=== PATIENT | female | born 1975 | race Caucasian/White ===

== ENCOUNTER → 2022-08-06 | Outpatient (CLI) | payer BC, SELFPAY ==
[2022-08-11 12:26] LABS: HPV APTIMA, High Risk Negative (Negative)
== END | disposition home or self-care (01) ==
PROVIDERS: Visit Provider Registered Nurse
DX: Z12.4 Encounter for screening for malignant neoplasm of cervix (principal)
CPT/HCPCS: 87624; 88175; G0145

== ENCOUNTER → 2022-09-22 | Outpatient (CLI) | payer BC, SELFPAY ==
--- NOTE | 2022-09-22 07:19 | BI_ITS ---
MAMMOGRAPHY - BILATERAL SCREENING REASON FOR EXAM: Female, 46 years old. Routine annual screening examination. PERTINENT HISTORY: Non-contributory. TECHNIQUE: Digital bilateral breast lucia (3D mammographic acquisition) in the CC and MLO projections. 2-D mediolateral oblique (MLO) and craniocaudad (CC) views of both breasts were obtained. CAD: Full Field Digital Mammography with Computer Added Detection was performed. COMPARISON: None. Baseline examination. FINDINGS: Breast Composition: The breasts are heterogeneously dense, which may obscure small masses. There are no dominant masses or suspicious calcifications. No other significant abnormalities are identified. BI/SCRN MAMM (CAD)W/LUCIA BILAT IMPRESSION: Negative screening mammogram. Yearly followup mammogram recommended. (A) ASSESSMENT CATEGORY: BIRADS Category 1: Negative. A letter regarding these results will be sent to the patient by the facility within 30 days. Approximately 10% of breast cancers are not detected by mammography. A normal mammogram should not delay biopsy of a clinically suspicious abnormality. [id number] Electronically Signed: Mitchell Stafford MD at 12:52 EST ,
[2022-09-22 07:58] LABS: Absolute Lymphocyte Count 2.05 X10^3/uL (0.83-4.51); Absolute Neutrophil Count 3.2 X10^3/uL (2.0-7.7); Basophil# 0.04 X10^3/uL; Basophil% 0.7 % (0-1); Eosinophil# 0.32 X10^3/uL; Eosinophils% 5.4 % (0-5); Hemoglobin 14.5 g/dL (12.0-15.0); Lymphocyte # 2.05 X10^3/ul (0.83-4.51); Lymphocyte % 34.5 % (19-41); Mean Corpuscular Hgb 32.4 pg (27.0-32.0); Mean Corpuscular Volume 98.2 fL (81-99); Mean Platelet Vol. 10.3 fl (6.2-12.0); Monocyte# 0.32 X10^3/uL; Monocyte% 5.4 % (0-10); NRBC Flagged by Analyzer 0 % (0-5); Neutrophil % 53.8 % (47-70); Platelet Count 273 K/mm3 (150-450); RBC Distribution Width CV 12.4 % (11.6-14.6); RBC Distribution Width SD 45.1 fl (35.1-43.9); Red Blood Count 4.48 M/mm3 (4.2-5.4); White Blood Count 5.9 K/mm3 (4.4-11.0)
[2022-09-22 08:31] LABS: Hemoglobin A1c 5.2 % (3.8-5.6)
[2022-09-22 08:38] LABS: AST(SGOT) 39 U/L (15-37); Alanine Aminotransfer ALT/SGPT 57 U/L (13-56); Albumin, Serum 3.9 g/dL (3.2-5.0); Alkaline Phosphatase 95 U/L (45-117); Anion Gap 8 (5-15); BUN 14 mg/dL (7-18); Calcium,Total 9.2 mg/dL (8.5-10.1); Chloride 105 mmol/L (98-107); Creatinine, Serum 0.74 mg/dL (0.55-1.02); EST Glomerular Filtration Rate 91 mL/min (>60); Est Glom Filt Rate - Afr Amer 110 mL/min (>60); Follicle Stimulating Hormone 47.5 mIU/mL; Globulin 3.9 g/dL (2.2-4.2); Glucose 98 mg/dL (74-106); Luteinizing Hormone 28.1 mIU/mL; Potassium 3.7 mmol/L (3.5-5.1); Protein, Total 7.8 g/dL (6.4-8.2); Sodium Level 143 mmol/L (136-145); T4 Free Direct 1.11 ng/dL (0.76-1.46); Thyroid Stim Hormone (TSH) 1.71 uIU/mL (0.358-3.74)
== END | disposition home or self-care (01) ==
PROVIDERS: Referring Provider Registered Nurse; Visit Provider Registered Nurse
DX: Z12.31 Encounter for screening mammogram for malignant neoplasm of breast (principal); Z01.419 Encounter for gynecological examination (general) (routine) without abnormal findings; N92.6 Irregular menstruation, unspecified
CPT/HCPCS: 36415; 77063; 77067; 80053; 83001; 83002; 83036; 84439; 84443; 85025

== ENCOUNTER → 2025-01-03 | Outpatient (CLI) | payer BC, SELFPAY ==
[2025-01-03 17:40] LABS: Estradiol 10.9 pg/mL; Follicle Stimulating Hormone 78.5 mIU/mL; Luteinizing Hormone 51.4 mIU/mL
== END | disposition home or self-care (01) ==
PROVIDERS: Referring Provider Nurse Practitioner Family; Visit Provider Nurse Practitioner Family
DX: Z78.0 Asymptomatic menopausal state (principal)
CPT/HCPCS: 36415; 82670; 83001; 83002

== ENCOUNTER → 2025-01-23 | Outpatient (CLI) | payer BC, SELFPAY ==
--- NOTE | 2025-01-23 08:00 | BI_ITS ---
EXAM: SCRN MAMM (CAD)W/LUCIA BILAT DATE: 01/23/2025 CLINICAL HISTORY: F, Age 49 y/o , SCREEN FOR BREAST CANCER BREAST CANCER RISK ASSESSMENT: Has not been calculated. TECHNIQUE: SCRN MAMM (CAD)W/LUCIA BILAT COMPARISON: Prior exam(s) dated 09/22/2022. FINDINGS: TISSUE DENSITY: The breast tissue is heterogeneously dense, which may obscure small masses. Bilateral Breast Mammographic Findings: No suspicious masses, suspicious clustered microcalcifications, architectural distortion or secondary signs of malignancy is identified in either breast. Benign round microcalcifications are seen in the right breast. BI/SCRN MAMM (CAD)W/LUCIA BILAT IMPRESSION: Benign screening mammogram. OVERALL FINAL ASSESSMENT BI-RADS 2: BENIGN RECOMMEND ANNUAL MAMMOGRAPHIC SCREENING. RECOMMENDATION: Routine annual follow-up in 1 Year A letter with findings and recommendations will be mailed to the patient. Reading Location: [id number]
--- OUTSIDE RECORDS SUMMARY | 2025-01-23 08:11 | XMS RPT_ITS | CCD ---
Author Organization [facility] Care Team Providers Care Lpn Medical Assistant Name Role Phone Unavailable Primary Care Provider Unavailabl e Care Physician, No Primary Primary Care Provider Unavailable Care Physician, No Primary Referring Provider Un available SOLEDAD Johnson Attending Provider JERRY SEE Attending Unavailable Unavailable Primary Care Provider Unavailabl e Unavailable Primary Care Provider Unavailabl e PACK, MAYANK Attending Unavailable PACK, MAYANK Attending Unavailable Care Physician, No Primary Primary Care Provider Unavailable Care Physician, No Primary Referring Provider Un available Beatrice MANAGER RENTAL-CEdith Attending Provider Beatrice MANAGER RENTAL-CEdith Referring Provider [phone] Care Physician, No Primary Primary Care Unava ilable Care Physician, No Primary Referring Unava ilable Edith Barron Attending Unavailable Care Physician, No Primary Primary Care Unava ilable Edith Barron Attending Unavailable Edith Barron Referring Unavailable Care Physician, No Primary Primary Care Unava ilable Edith Barron Attending Unavailable Edith Barron Referring Unavailable Allergies Allergy Classification Reported Allergen(s) Allergy Type Date of Onset Reaction(s) Facility (10 sources) Amoxicillin; Translations: [AMOXICILLIN] Drug Allergy 04-17-2015 [facility] (1 source) Amoxicillin Drug Allergy 01-03-2025 [facility] Rep[facility] Medications Current Medications Medication Drug Class(es) Dates Sig (Normalized) Sig (Original) dicyclomine hydrochloride 10 mg oral capsule (4 sources) Anticholinergic Start: 05-22-2015 take 1 capsule by mouth at bedtime dicyclomine (BENTYL) 10 mg capsule Take 1 capsule by mouth before meals and at bedtime. 120 capsule 11 05/22/2015 Active Comment on above: Take 1 capsule by mo uth before meals and at bedtime. Navajo (Nk) (2 sources) Start: 01-03-2025 [place] (Nk) Active January 03, 2025 12:00am Completed/Discontinued Medications Medication Drug Class(es) Dates Sig (Normalized) Sig (Original) polyethylene glycol 3350 66928 mg powder for oral solution (2 sources) Osmotic Laxative Start: 10-09-2023 End: 01-03-2025 Polyethylene Glycol 3350 (Miralax) 17 gram/dose powder Discontinued 17 g PO DAILY October 09, 2023 1:00am January 03, 2025 3:23pm Problems Problem Classification Problem Date Documented Da te Episodic/Chronic Anxiety disorders (2 sources) Anxiety; Translations: [Anxiety disorder, unspecified] 01-04-2025 Chronic Comment on above: MARQUITA 7 score of 10 Menopausal disorders (2 sources) Perimenopausal state; Translations: [Menopausal and female climacteric states] 10-09-2023 Chronic Comment on above: relizen recommendedb asson model viewed for libido. Menstrual disorders (6 sources) Irregular periods; Translations: [Irregular menstruation, unspecified] 08-06-2022 Chronic Comment on above: spontaneous return o f menses past 2 monthswill continue to monitor cycle for the next 3-6 monthsobtain TSH/t4, FSH/LH Other gastrointestinal disorders (4 sources) Irritable bowel syndrome with diarrhea; Translations: [Irritable bowel syndrome with diarrhea] Onset: 5 05-22-2015 Chronic Other gastrointestinal disorders (3 sources) Irritable bowel syndrome; Translations: [Mixed irritable bowel syndrome] 12-01-2023 Chronic Comment on above: currently working [facility] [employer]. recommended looking into magnesium for bowel movements. Other screening for suspected conditions (not mental disorders or infectious disease) (2 sources) Encounter for screening mammogram for malignant neoplasm of breast; Translations: [Encounter for screening mammogram for malignant neoplasm of breast] Onset: 5 Episodic Other upper respiratory infections (1 source) Acute maxillary sinusitis, unspecified; Translations: [Acute non-recurrent maxillary sinusitis] Onset: 3 Episodic Residual codes; unclassified (2 sources) Postmenopausal state; Translations: [Asymptomatic menopausal state] 01-04-2025 Episodic Residual codes; unclassified (1 source) Asymptomatic menopausal state; Translations: [Asymptomatic menopausal state] Onset: Episodic Results Test Name Value Interpretation Reference Range Facility Estradiolon 01-03-2025 ESTRADIOL 10.9 pg/mL Normal [facility] Comment on above: Result Comment: FEMA LES ADULT FEMALE: Premenopausal: 15-350 pg/mL(E2 levels vary widely through the menstrual cycle) Postmenopausal: <10 pg/mL RODGER STAGES MEAN AGE REFERENCE RANGES Stage I(>14 days and prepubertal) 7.1 years Undetectable-20 pg/mLL Stage II 10.5 years Undetectable-24 pg/mL Stage III 11.6 years Undetectable-60 pg/mL Stage IV 12.3 years 15-85 pg/mL Stage V 14.5 years 15-350 pg/mL Puberty onset (transition from Rodger stage I to Rodger stage II) occurs for girls at a median age of 10.5 (/- 2) years. There is evidence that it may occur up to 1 year earlier in obese girls and in girls. Progression through Rodger stages is variable. Rodger stage V (adult) should be reached by age 18. Performed By: #### L 3100.5055, L3300.1750 #### [facility] [address] [place], [place], [id number] FSH and LHon 01-03-2025 FSH 78.5 mIU/mL Normal [facility] Comment on above: Result Comment: FEMA LE: Follicular: 1.4 - 18.1 mIU/mL Midcycle: 3.4 - 33.4 mIU/mL Luteal: 1.5 - 9.1 mIU/mL Post Menopause: 23.0 - 116.3 mIU/mL MALE: 1.4 - 18.1 mIU/mL Performed By: #### L 3100.5055, [id number] #### [facility] [address] [place], [place], [id number] LH 51.4 mIU/mL Normal [facility] Comment on above: Result Comment: FEMA LE: Follicular: 1.9-12.5 mIU/mL Midcycle: 8.7-76.3 mIU/mL Luteal: 0.5-16.9 mIU/mL Post Menopause: 15.9-54.0 mIU/mL MALE: 20-70 Years: 1.5-9.3 mIU/mL >70 Years: 3.1-34.6 mIU/mL Performed By: #### L 3100.5055, [id number] #### [facility] [address] [place], [address] Cdl Service Technician Office Visit Reporton 01-03-2025 Cdl Service Technician Office Visit Report [facility] [address], [address] [place] [address] OFFICE VISIT Date of Service: 01/03/25 MR#: [id number] Acct: [id number] Name: JOSSELIN VOSS Rep #: [id number] : 1975 Provider: ISH Hernandez Age/Sex: 49/F [place] [facility] [place]: Signed Intake Vital Signs 10/09/23 15:59 01/03/25 15:22 01/03/25 15:23 Height 5 ft 5 in 5 ft 5 in 5 ft 5 in Weight: 140 lb 8 oz BMI 23.3 BP 145/85 H Intake 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 Is patient in pain?: No Allergies amoxicillin Allergy (Verified 01/03/25 15:23) Hives Medications ???Medication ???Instructions ???Recorded ???Confirmed ???Type NK 01/03/25 01/03/25 History Is last menstrual period known: No Post menopausal: Yes Patient : No : No Control Method: menopause PFSH Surgical History History of History of colonoscopy History of endometrial ablation Family History Grandmother Ovarian cancer Grandfather Diabetes Mother Lung cancer Social History adopted: No household members: spouse and children number of children: 2 current occupational status: employed current occupation: school bus mechanic pets and animals: Yes sexually active: Yes Smoking Status: Never smoker Electronic Cigarette Use: not used alcohol intake: current alcohol intake frequency: a few times a month additional social history: spouse - Rakan History Past Pregnancies Del. Date Name GA/Weeks Outcome Route Bth Weight Gen Labor Lgth Anesthesia Del Tiffanie Provider FOB 07/22/02 Ty 03/20/06 Ruby HPI Encounter for routine gynecological examination Details: JOSSELIN VOSS is a 49 year old who presents for annual exam. She reports she is doing well overall; she does continue to have hot flashes; feels overall these have naturally improved but does notice irritability; mood changes; increase in her weight. Feels her job stress plays a part however has not had a menses in 2 years and feels post menopausal. Last PAP: 2022; normal. HPV neg. History of abnormal PAP: no. Last mammogram: 2022; normal. History of abnormal mammogram: no Colon cancer screening: Dr. Washington; [facility] Other preventative health care screenings: no PCP. Female Reproductive History Questions: metorrhagia: No, sexually active: Yes, dyspareunia: No and PCB: No Menopausal Symptoms: Yes hot flashes, Yes night sweats, Yes weight change, Yes mood changes and Yes sleep problems Menopausal Treatment: No HRT, No Vaginal Estrogen, No Osphena, No OTC treatments and No prescription non-hormonal treatment ROS Const Constitutional: Reports night sweats; Denies chills, fatigue, fever(s), headache(s) or weight loss Eyes Eyes: Denies change in vision ENT ENT: Denies dizziness Cardio Card: Denies chest pain at rest or palpitations Resp Resp: Denies cough GI GI: Denies abdominal pain, constipation or nausea : Reports hot flashes; Denies difficulty voiding, dysuria, hematuria, nipple discharge, pelvic pain, prolapse symptoms, urinary incontinence, vaginal discharge, vaginal dryness, vaginal odor or vaginal pruritus Skin Skin/Breast: Denies alopecia, rash, breast mass, breast pain, breast skin changes or nipple discharge Neuro Neuro: Denies dizziness Psych Psych: Reports anxiety (see HPI); Denies depression Endo Endo: Denies cold intolerance, excessive sweating or heat intolerance Exam Const General: cooperative, healthy appearing, comfortable, no acute distress, well groomed and well hydrated Nutritional Appearance: well nourished Orientation: alert, awake and oriented x3 HENMT Head: normal to inspection and normocephalic Ears: hearing grossly normal bilaterally and external ears normal Nose: external nose normal Face and sinus: normal facial exam Eyes General: appearance normal, both eyes and all related structures Neck Neck: normal visual inspection, full ROM and no lymphadenopathy Thyroid: thyroid normal Chest Chest palpation inspection: normal inspection of the chest Breast inspection: normal inspection of the breasts and normal inspection of the axillae Breast palpation: normal palpation of the breasts, normal palpation of the axillae and no axillary lymphadenopathy Resp Effort Inspection: normal respiratory effort, able to speak in complete sentences and symmetric chest movement GI Inspection: normal to inspection Palpation: soft and no hepatosplenomegaly General: bladder normal to palpation External Female Exam: normal external appearance and normal appearance of the urethra Urethra: normal brennon (more content not included)... Normal [facility] Serum or plasma estradiol me asurement after follitropin dose (mass/volume)Ordered By: Edith Barron on 01-03-2025 E2 post dose follitropin [Mass/Vol] 10.9 pg/mL [facility] Comment on above: FEMALES ADULT FEMALE : Premenopausal: 15-350 pg/mL(E2 levels vary widely through the menstrual cycle) Postmenopausal: <10 pg/mL RODGER STAGES MEAN AGE REFERENCE RANGES Stage I(>14 days and prepubertal) 7.1 years Undetectable-20 pg/mLL Stage II 10.5 years Undetectable-24 pg/mL Stage III 11.6 years Undetectable-60 pg/mL Stage IV 12.3 years 15-85 pg/mL Stage V 14.5 years 15-350 pg/mL Puberty onset (transition from Rodger stage I to Rodger stage II) occurs for girls at a median age of 10.5 (/- 2) years. There is evidence that it may occur up to 1 year earlier in obese girls and in girls.Progression through Rodger stages is variable. Rogder stage V (adult) should be reached by age 18. HISTORY PHYSICALon HISTORY PHYSICAL HNO ID: [id number] Author: MAYANK BARRIENTOS APRN.MARLYS Service: ? Author Type: Nurse Practitioner Type: H&P Filed: 12/01/2023 07:49 Note Text: DISTANCE HEALTH VISIT This Team Access Model visit is a virtual encounter. It required patient-provider interaction for the medical decision making as documented below. REASON FOR VISIT: follow up IBS HPI: Josselin Voss is a 48 year old female who presents for follow up IBS. She admits her symptoms have improved aprox 60%. She is taking MiraLAX 1 capful every other day. She has a BM every other day. She endorses type 4-5 stool. She feels that her menopause symptoms are exacerbating her IBS. She is working with her window maker on different supplements for menopause. Patient denies heartburn, regurgitation, dysphagia, early satiety, nausea, vomiting, abdominal pain, changes in appetite, change in bowel habits, unintentional weight loss, melena, hematochezia or hematemesis. 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 Voss is a 47 year old female with a history of IBS presents for IBS. She endorses a longstanding history of IBS-M. She was previously seeing Dr. Washington. She was doing well on bentyl and a probiotic for many years. She had a colonoscopy on 05/07/2015 that was unrevealing. She states that she has been under a lot of stress and her symptoms have flared. She endorses constipation accompanied by abdominal bloating and not feeling completely evacuated. She can go up to 4-7 days without a BM. She has done MiraLAX as needed without improvement. I recommend a colon clean out followed by MiraALX 1 capful daily. I discussed titrating this medication as needed to have a bowel movement daily to every other day.I had a long discussion with the patient regarding Irritable Bowel syndrome, including the general benign nature of disease course, the waxing and waning pattern of symptoms, and the correlation of symptoms with stress, depression, or anxiety. The patient was also counseled on the importance of lifestyle modifications to decrease severity of IBS symptoms such as: stress reduction, increased exercise, relaxation techniques, meditation, and yoga among others. 1. Irritable bowel syndrome with constipation - ICD9: 564.1, ICD10: K58.1 - colon clean out - MiraLAX 1 capful daily adjusting s needed COLONOSCOPY 05/07/2015 Impression: - The entire examined colon is normal. Biopsied. PATH FINAL DIAGNOSIS Colon, random biopsies - Colonic mucosa with no significant diagnostic alteration. COMMENT The colonic mucosa shows overall preservation of the crypt architecture with a normal physiologic component of inflammatory cells within the lamina propria including plasma cells. There is no evidence of acute colitis. Lymphocytic or collagenous colitis is not identified. ALLERGIES Allergen Reactions Amoxil [Amoxicillin] Hives PAST MEDICAL HISTORY Diagnosis Date IBS (irritable bowel syndrome) PAST SURGICAL HISTORY Procedure Laterality Date , CLASSIC, IN-HOSP CARE 2001 COLONOSCOPY FLX DX W/COLLJ SPEC WHEN PFRMD 05/07/2015 Colonoscopy PAST SURGICAL HISTORY OF 2009 cervical ablation PAST SURGICAL HISTORY OF 1994 wisdom teeth extraction SCREENING COLONSCOPY NOT HIGH RISK 2010 FAMILY HISTORY Problem Relation Age of Onset Hypertension Maternal Grandmother Heart Maternal Grandfather Stroke Paternal Grandmother Diabetes Paternal Grandfather Social History Tobacco Use Smoking status: Never Smokeless tobacco: Never Vaping Use Vaping Use: Never used Substance Use Topics Alcohol use: No Drug use: No Current Outpatient Medications Medication Sig dicyclomine (BENTYL) 10 mg capsule Take 1 capsule by mouth before meals and at bedtime. (Patient not taking: Reported on 01/26/2023) No current facility-administered medications for this visit. I have confirmed and edited, if necessary, the PFSH obtained by others. REVIEW OF SYSTEMS: GENERAL: No weight loss, malaise or fevers RESPIRATORY: Negative for cough, hemoptysis, wheezing, dyspnea or shortness of breath CARDIOVASCULAR: Negative for chest pain, leg swelling, or palpitations GI: See HPI PHYSICAL EXAM: General - Normal, healthy, cooperative, in no acute distress Able to interact verbally by video conference Psych - ORIENTATION: normal to time place, person and situation Mood/Affect: AFFECT AND MOOD: Normal Head/Neuro - Normal size and shape Facial appearance normal Pulmonary - respiratory effort normal Cardiovascular - patient describes extremities normal, warm, no cyanosis,no clubbing, and no edema Abdominal - Not performed Skin - abnormal lesions not visualized Motor - patient seen sitting with Normal appearing strength and coordination ASSESSMENT/PLAN: Ms. Voss is a 48 year old female with a history of IBS presents for IBS follow up as copied and updated from my previous office vis (more content not included)... Normal [facility] 09-16-2023 SHAHLA Telephone (GASTLN) JOSSELIN VOSS ([id number]) 1975 F Date Time Provider Department 09/16/23 MAYANK BARRIENTOS During your visit today, we recorded the following information about you: Melissa Junior 09/16/2023 1:10 PM Signed Mayank Barrientos APRN.CNP P Ln Rigo Buttonhole Tacker Please schedule follow up in 3 month. Pt requesting virtuals 1st attempt LVM to schedule appointment for vv Melissa Vernon September 16, 2023 Myra Mely 09/29/2023 10:25 AM Signed Called patient with second attempt. LVM to call back and schedule per below and will send my chart message. Allergies As of Date: 09/16/2023 Noted Allergy Reaction AMOXIL (AMOXICILLIN) 04/17/2015 4 - Hives Date Reviewed: 01/26/2023 Reviewed by: Jerry See MD - Fully Assessed Reason for Visit: Appointment [[id number]] Prescriptions as of 09/29/2023 - dicyclomine (BENTYL) 10 mg capsule Take 1 capsule by mouth before meals and at bedtime. Problem List As Of Date 09/16/2023 Noted Resolved Irritable bowel syndrome with diarrhea [K58.0] 05/22/2015 Encounter Status:Closed by MELISSA JUNIOR on 09/16/23 Normal [facility] HISTORY PHYSICALon HISTORY PHYSICAL HNO ID: [id number] Author: MAYANK BARRIENTOS APRN.CNP Service: ? Author Type: Nurse Practitioner Type: H&P Filed: 09/02/2023 08:33 Note Text: DISTANCE HEALTH VISIT This Team Access Model visit is a virtual encounter. It required patient-provider interaction for the medical decision making as documented below. Due to technical difficulties, the visual portion of the virtual visit could not be completed and we proceed with audio only. REASON FOR VISIT: Irritable Bowel Syndrome HPI: Josselin Voss is a 47 year old female who presents for IBS. She endorses a longstanding history of IBS-M. She was previously seeing Dr. Washington. She was doing well on bentyl and a probiotic for many years. She had a colonoscopy on 05/07/2015 that was unrevealing. She states that she has been under a lot of stress and her symptoms have flared. She endorses constipation accompanied by abdominal bloating and not feeling completely evacuated. She can go up to 4-7 days without a BM. She has done MiraLAX as needed without improvement. Patient denies heartburn, regurgitation, dysphagia, early satiety, nausea, vomiting, changes in appetite, unintentional weight loss, melena, hematochezia or hematemesis. No known FHx of GI tract malignancy or disease. No prior abdominopelvic surgeries. Past Clinical Work-Up: ALLERGIES Allergen Reactions Amoxil [Amoxicillin] Hives PAST MEDICAL HISTORY Diagnosis Date IBS (irritable bowel syndrome) PAST SURGICAL HISTORY Procedure Laterality Date , CLASSIC, IN-HOSP CARE 2001 COLONOSCOPY FLX DX W/COLLJ SPEC WHEN PFRMD 05/07/2015 Colonoscopy PAST SURGICAL HISTORY OF 2009 cervical ablation PAST SURGICAL HISTORY OF 1994 wisdom teeth extraction SCREENING COLONSCOPY NOT HIGH RISK 2010 FAMILY HISTORY Problem Relation Age of Onset Hypertension Maternal Grandmother Heart Maternal Grandfather Stroke Paternal Grandmother Diabetes Paternal Grandfather Social History Tobacco Use Smoking status: Never Smokeless tobacco: Never Vaping Use Vaping Use: Never used Substance Use Topics Alcohol use: No Drug use: No Current Outpatient Medications Medication Sig dicyclomine (BENTYL) 10 mg capsule Take 1 capsule by mouth before meals and at bedtime. (Patient not taking: Reported on 01/26/2023) No current facility-administered medications for this visit. I have confirmed and edited, if necessary, the PFSH obtained by others. REVIEW OF SYSTEMS: GENERAL: No weight loss, malaise or fevers RESPIRATORY: Negative for cough, hemoptysis, wheezing, dyspnea or shortness of breath CARDIOVASCULAR: Negative for chest pain, leg swelling, or palpitations GI: See HPI PHYSICAL EXAM: General - Normal, healthy, cooperative, in no acute distress Able to interact verbally by video conference Psych - ORIENTATION: normal to time place, person and situation Mood/Affect: AFFECT AND MOOD: Normal Head/Neuro - Normal size and shape Facial appearance normal Pulmonary - respiratory effort normal Cardiovascular - patient describes extremities normal, warm, no cyanosis,no clubbing, and no edema Abdominal - Not performed Skin - abnormal lesions not visualized Motor - patient seen sitting with Normal appearing strength and coordination ASSESSMENT/PLAN: Ms. Voss is a 47 year old female with a history of IBS presents for IBS. She endorses a longstanding history of IBS-M. She was previously seeing Dr. Washington. She was doing well on bentyl and a probiotic for many years. She had a colonoscopy on 05/07/2015 that was unrevealing. She states that she has been under a lot of stress and her symptoms have flared. She endorses constipation accompanied by abdominal bloating and not feeling completely evacuated. She can go up to 4-7 days without a BM. She has done MiraLAX as needed without improvement. I recommend a colon clean out followed by MiraALX 1 capful daily. I discussed titrating this medication as needed to have a bowel movement daily to every other day.I had a long discussion with the patient regarding Irritable Bowel syndrome, including the general benign nature of disease course, the waxing and waning pattern of symptoms, and the correlation of symptoms with stress, depression, or anxiety. The patient was also counseled on the importance of lifestyle modifications to decrease severity of IBS symptoms such as: stress reduction, increased exercise, relaxation techniques, meditation, and yoga among others. 1. Irritable bowel syndrome with constipation - ICD9: 564.1, ICD10: K58.1 - colon clean out - MiraLAX 1 capful daily adjusting s needed I spent more than 30 minutes [id number] with the patient and over half the time was devoted to counseling and/or coordination of care. This note was dictated using [employer]romboVision speech recognition software and may contain some errors that were a result of the program not accurately transcribing what was dictated. I have commu (more content not included)... [facility] CNOVon 01-26-2023 CNOV Office Visit ([facility] ) JOSSELIN VOSS ([id number]) 1975 F Date Time Provider Department 01/26/23 10:50 AM JERRY SEE During your visit today, we recorded the following information about you: Temperature Pulse Respiration Blood pressure 98.2 degrees 100/minute 19/minute 118/62 Weight 60.3 kg Mishel Gregory LPN 01/26/2023 11:34 AM Signed Attention: During the [employer] system downtime some charting was done on paper. See paper medical record or scanned documents tab for patient documentation. CORY Judd MD 01/26/2023 11:34 AM Signed Josselin Voss is a 47 year old FEMALE who presents with Cough (STARTED 7-10 DAYS AGO /), Sore Throat, Stuffy nose, and Congestion Note: At the time of patient visit the [facility] system of documentation was down Initial documentation was done on the downtime papers Now being transferred to the [facility] system Patient presented with stuffy nose cough congestion sore throat for the last 7 to 10 days Started having some chest discomfort and chest congestion for few days No fever chills, no shortness of breath No vomiting or diarrhea PAST MEDICAL HISTORY Diagnosis Date IBS (irritable bowel syndrome) ACTIVE PROBLEM LIST Irritable Bowel Syndrome With Diarrhea Current Outpatient Medications Medication Sig Dispense Refill dicyclomine (BENTYL) 10 mg capsule Take 1 capsule by mouth before meals and at bedtime. (Patient not taking: Reported on 01/26/2023) 120 capsule 11 No current facility-administered medications for this visit. Social History Tobacco Use Smoking status: Never Smokeless tobacco: Never Vaping Use Vaping Use: Never used Substance Use Topics Alcohol use: No Drug use: No Alcohol Use: No Tobacco Use: Never FAMILY HISTORY Problem Relation Age of Onset Hypertension Maternal Grandmother Heart Maternal Grandfather Stroke Paternal Grandmother Diabetes Paternal Grandfather Review of Systems HENT: Positive for congestion and sinus pain. Respiratory: Positive for cough. All other systems reviewed and are negative. BP 118/62 Pulse 100 Temp (Src) 98.2 (Temporal) Resp 19 Wt 133 lb (60.3kg) SpO2 97% Physical Exam Vitals reviewed. Constitutional: General: She is not in acute distress. Appearance: Normal appearance. She is not ill-appearing or toxic-appearing. HENT: Nose: Congestion present. Comments: Mild paranasal sinuses tenderness Mouth/Throat: Mouth: Mucous membranes are moist. Pharynx: Oropharynx is clear. Comments: Mild postnasal drip Cardiovascular: Rate and Rhythm: Normal rate. Heart sounds: Normal heart sounds. Pulmonary: Effort: Pulmonary effort is normal. Breath sounds: Normal breath sounds. Musculoskeletal: Cervical back: Normal range of motion and neck supple. Neurological: Mental Status: She is alert. ASSESSMENT/PLAN: 1. Acute non-recurrent maxillary sinusitis - ICD9: 461.0, ICD10: J01.00 Paper prescription of Z-Jules as directed 1 pack with no refill was given patient to take to pharmacy Fluids, f/u PCP for evaluation and care Saline nasal spray, [id number] medication for symptom relief as needed Explained details Paper discharge instructions were given to the patient Patient understand and agreed MD Jerry Jean MD 01/26/2023 11:32 AM Signed Fluids, f/u PCP for evaluation and care Saline nasal spray, datl-imr-jozkhra medication for symptom relief as needed Explained details Referring Provider: SELF [200] Allergies As of Date: 01/26/2023 Noted Allergy Reaction AMOXIL (AMOXICILLIN) 04/17/2015 4 - Hives Date Reviewed: 01/26/2023 Reviewed by: Jerry See MD - Fully Assessed Reason for Visit: Cough [28] Cmt: STARTED 7-10 DAYS AGO Sore Throat [200] Stuffy nose [Other] Congestion [Other] Primary Visit Diagnosis:Acute non-recurrent maxillary sinusitis [J01.00] Prescriptions as of 01/26/2023 - dicyclomine (BENTYL) 10 mg capsule Take 1 capsule by mouth before meals and at bedtime. Problem List As Of Date 01/26/2023 Noted Resolved Irritable bowel syndrome with diarrhea [K58.0] 05/22/2015 Other instructions from your clinician: Fluids, f/u PCP for evaluation and care Saline nasal spray, kbee-iwd-[id number] medication for symptom relief as needed Explained details Level of Service: OFFICE/OUTPATIENT ESTABLISHED LOW [facility] 20-29 MIN [06105] Encounter Status:Closed by JERRY SEE on 01/26/23 [facility] Absolute lymphocyte countOrd ered By: Monica Johnson on 09-22-2022 Lymphocytes Auto (Unsp spec) [#/Vol] 2.05 10*3/uL 0.83-4.51 [facility] Basophil percentageOrdered B y: Monica Johnson on 09-22-2022 Basophils/100 WBC (Bld) 0.7 % 0-1 [facility] Bilirubin [Mass/Vol] 0.40 mg/dL 0.20-1.00 [facility] Comment on above: For patients on eltr ombopag therapy, use of Dimension [place] TBIL is not recommended. Chloride [Moles/Vol] 105 mmol/L 98-107 [facility] Eosinophils/100 WBC (Bld) 5.4 % 0-5 [facility] Glucose [Mass/Vol] 98 mg/dL 74-106 [facility] Neutrophils (Bld) [#/Vol] 3.2 10*3/uL 2.0-7.7 [facility] Neutrophils/100 WBC (Bld) 53.8 % 47-70 [facility] Potassium [Moles/Vol] 3.7 mmol/L 3.5-5.1 [facility] Protein [Mass/Vol] 7.8 g/dL 6.4-8.2 [facility] Sodium [Moles/Vol] 143 mmol/L 136-145 [facility] WBC (Bld) [#/Vol] 5.9 10*3/uL 4.4-11.0 [facility] Blood erythrocytes count (nu mber/volume)Ordered By: Monica Johnson on 09-22-2022 RBC (Bld) [#/Vol] 4.48 10*6/uL 4.2-5.4 [facility] Blood hemoglobin measurement (mass/volume)Ordered By: Monica Johnson on 09-22-2022 Hemoglobin (Bld) [Mass/Vol] 14.5 g/dL 12.0-15.0 [facility] Blood lymphocytes/100 leukoc ytesOrdered By: Monica Johnson on 09-22-2022 Lymphocytes/100 WBC (Bld) 34.5 % 19-41 [facility] Blood monocytes/100 leukocyt esOrdered By: Monica Johnson on 09-22-2022 Monocytes/100 WBC (Bld) 5.4 % 0-10 [facility] Blood platelet mean volumeOr dered By: Monica Johnson on 09-22-2022 Platelet mean volume (Bld) [Entitic vol] 10.3 fL 6.2-12.0 [facility] Determination of erythrocyte mean corpuscular volume (MCV)Ordered By: Monica Johnson on 09-22-2022 MCV (RBC) [Entitic vol] 98.2 fL 81-99 [facility] Hematocrit Auto (Bld) [Volum e fraction]Ordered By: Monica Johnson on 09-22-2022 Hematocrit (Bld) [Volume fraction] 44.0 % 37-47 [facility] Laboratory - Chemistry and C hemistry - challengeOrdered By: Monicayo Johnson on 09-22-2022 ALP [Catalytic activity/Vol] 95 U/L 45-117 [facility] ALT [Catalytic activity/Vol] 57 U/L 13-56 [facility] CO2 [Moles/Vol] 30.0 mmol/L 21.0-32.0 [facility] Free T4 [Mass/Vol] 1.11 ng/dL 0.76-1.46 [facility] Globulin (S) [Mass/Vol] 3.9 g/dL 2.2-4.2 [facility] Urea nitrogen/Creatinine [Mass ratio] 19.0 mg/mg 10-20 [facility] - Hematology and Cell countsOrdered By: Monica Johnson on 09-22-2022 Erythrocyte distribution width (RBC) [Entitic vol] 45.1 fL 35.1-43.9 [facility] Erythrocyte distribution width (RBC) [Ratio] 12.4 % 11.6-14.6 [facility] Immature granulocytes/100 WBC (Bld) 0.200 % 0.0-0.9 [facility] Comment on above: IG% - Immature Granu locytes (promyelocytes, myelocytes and metamyelocytes) > 1% indicates that a LEFT SHIFT is Present. MCH (RBC) [Entitic mass] 32.4 pg 27.0-32.0 [facility] Nucleated RBC/100 WBC (Bld) [Ratio] 0 % 0-5 [facility] MCHC Auto (RBC) [Mass/Vol]Or dered By: Monica Johnson on 09-22-2022 MCHC (RBC) [Mass/Vol] 33.0 g/dL 32-36 [facility] No Panel InformationOrdered By: Monica Johnson on 09-22-2022 Estimated GFR (MDRD) Amer 110 mL/min >60 [facility] Comment on above: GFR Calc Estimated GFR (MDRD) Non-Af Amer 91 mL/min >60 [facility] Comment on above: Non- GFR Calc Follicle Stimulating Hormone 47.5 mIU/mL [facility] Comment on above: NORMAL REFERENCE RAN GES FEMALE FOLLICULAR 2.3 - 12.6 mIU/mL MID-CYCLE PEAK 5.2 - 17.5 mIU/mL LUTEAL 1.7 - 12.9 mIU/mL POST-MENOPAUSAL ON MHT 5.9 - 72.8 mIU/mL NOT ON MHT 12.7 - 132.2 mlU/mL MALE 0.7 - 10.8 mIU/mL Luteinizing Hormone 28.1 mIU/mL [facility] Comment on above: NORMAL REFERENCE RAN [facility] FEMALE FOLLICULAR 1.9 - 26.2 mIU/mL MID-CYCLE PEAK 22.8 - 76.1 mIU/mL LUTEAL 0.6 - 16.6 mIU/mL POST-MENOPAUSAL ON MHT 1.1 - 52.4 mIU/mL NOT ON MHT 8.6 - 61.8 mIU/mL MALE 1.2 - 10.6 mIU/mL Thyroid Stimulating Hormone (TSH) 1.71 uIU/mL 0.358-3.74 [facility] Platelets bldOrdered By: Marycarmen Johnson on 09-22-2022 Platelets (Bld) [#/Vol] 273 10*3/uL 150-450 [facility] Serum or plasma albumin neyda urement (mass/volume)Ordered By: Monica Johnson on 09-22-2022 Albumin [Mass/Vol] 3.9 g/dL 3.2-5.0 [facility] Serum or plasma albumin/glob ulin mass ratioOrdered By: Monica Johnson on 09-22-2022 Albumin/Globulin [Mass ratio] 1.0 {ratio} 0.9-2.4 [facility] Serum or plasma calcium neyda urement (mass/volume)Ordered By: Monica Johnson on 09-22-2022 Calcium [Mass/Vol] 9.2 mg/dL 8.5-10.1 [facility] Serum or plasma creatinine m easurement (mass/volume)Ordered By: Monica Johnson on 09-22-2022 Creatinine [Mass/Vol] 0.74 mg/dL 0.55-1.02 [facility] Comment on above: The validity of the calculated GFR & GFRAA in patients over 70 years has not been determined. Clinical correlation is essential. Serum or plasma urea nitroge n measurement (mass/volume)Ordered By: Monica Johnson on 09-22-2022 Urea nitrogen [Mass/Vol] 14 mg/dL 7-18 [facility] Thin prep Papanicolaou smear with manual screeningOrdered By: Monica Johnson on 09-22-2022 Thin prep Papanicolaou smear with manual screening 39 U/L 15 [facility] Thin prep Papanicolaou smear with manual screening 8 5-15 [facility] Whole blood hemoglobin A1c/t otal hemoglobin ratio (mass fraction)Ordered By: Monica Johnson on 09-22-2022 HbA1c (Bld) [Mass fraction] 5.2 % 3.8-5.6 [facility] Comment on above: Normal < 5.7 % Predi abetic 5.7 - 6.4 % Diabetic >or= 6.5 % Please note range changes. Cervical or vagninal specime n microscopic examination by cytology stain (reported asOrdered By: Monica Johnson on 08-06-2022 Cytology report Cyto stain Doc (Cvx/Vag) Comment . [facility] Comment on above: The Pap smear is a s creening test designed to aid in thedetection of premalignant and malignant conditions of theuterine cervix. It is not a diagnostic procedure andshould not be used as the sole means of detecting cervicalcancer. Both false-positive and false-negative reports dooccur. Detection in cervical specim en of any of human papilloma virus (HPV) 16, 18, 31, 33,Ordered By: Monica Johnson on 08-06-2022 HPV 16+18+31+33+35+39+4 5+51+52+56+58+59+66 +68 DNA Probe+sig amp Ql (Cvx) Negative Negative [facility] Comment on above: This nucleic acid am plification test detects fourteen high- risk HPV types (16,18,31,33,35,39,45,51,52,56,58,59,66,68)without differentiation. Laboratory - CytologyOrdered By: Monica Johnson on 08-06-2022 Senior Investigator Cyto stain Nom (Cvx/Vag) [ID] Comment . [facility] Comment on above: Vega Fermin, [employer] hnologist (ASCP) Laboratory - Miscellaneous t estsOrdered By: Monica Johnson on 08-06-2022 Service comment (Unsp spec) [Interp] Comment . [facility] Comment on above: This liquid based Th inPrep(R) pap test was screened withthe use of an image guided system. Service comment (Unsp spec) [Interp] . . [facility] Liquid-based cerv Pap + CT/G C by GODWIN w reflex to high-risk HPV for ASCUSOrdered By: Monica Johnson on 08-06-2022 Cytology report Cyto stain.thin prep Doc (Cvx/Vag) Comment . [facility] Comment on above: Criteria not met, HP V Genotype not performed.Performed at: - [facility] [id number] Director: Brittanie Delaney MD, Phone: [phone] at: = - [facility] [address] [id number] Director: Brittanie Delaney MD, Phone: [phone] No Panel InformationOrdered By: Monica Johnson on 08-06-2022 Pathology report final diagnosis Narrative Comment . [facility] Comment on above: NEGATIVE FOR INTRAEP ITHELIAL LESION OR MALIGNANCY. MSCon 06-29-2021 [facility] REPORT Normal [facility] DATE OF SERVICE: HISTORY OF PRESENT ILLNESS: A 45-year-old female, sinus pressure, nasal congestion, cough. Symptoms started June 22, progressively getting worse. No nausea, vomiting, or diarrhea. ALLERGIES: AMOXICILLIN . PAST MEDICAL HISTORY: Positive for a . Nonsmoker, . FAMILY HISTORY: Unremarkable. SOCIAL HISTORY: Unremarkable. PHYSICAL EXAMINATION: Weight is 121 pounds. Blood pressure 112/72, pulse 90, respirations 16, temperature is 98.6. Pulse oximetry is 97%. This is a 45-year-old female. HEENT: The sinuses are grossly positive. Pharynx is positive for erythema, negative for exudate. Neck is supple with positive anterior, negative posterior cervical lymphadenopathy. Heart has a regular rate and rhythm. Lungs: Harsh bronchial sounds are noted. No areas of consolidation or solid pneumonias could be appreciated. Extremities and neurologic are grossly intact. IMPRESSION: Sinobronchitis. [facility] PATIENT NAME: JOSSELIN VOSS [address] [place] MEDICAL REC #: [id number] [place] [address] [facility] REPORT STATCARE PHYSICIAN PLAN: The patient is placed on Zithromax 500 mg once a day for 5 days and Decadron, as well as Tessalon Perles. Rest, fluids, finish all medicines. Follow in 7-10 days, sooner if complications or problems arise. DO RYAN [id number] SSI File#: [id number] END OF DOCUMENT / CHANGE LOG FOLLOWS Last Edited By [employer]. Signed By Cate Blackman Lisa D DO #VAULI on 06/30/2021 09:20 ET on 06/30/2021 09:20 ET Revision Number - 2 Verified/Reviewed by 06/30/21919 THOR [facility] PATIENT NAME: JOSSELIN VOSS [address] [place] MEDICAL REC #: [id number] [place] [address] [facility] REPORT STATCARE PHYSICIAN Normal [facility] Vital Signs Date Time Vital Sign Value Performing Clinician German maynard 01-03-2025 15:23-0400 Body height 165.1 cm No Primary Care Physician [facility] 01-03-2025 15:22-0400 Body mass index (BMI) [Ratio] 23.3 kg/m2 No Primary Care Physician [facility] 01-03-2025 15:22-0400 Body weight 63.72 kg No Primary Care Physician [facility] 01-03-2025 15:22-0400 Diastolic blood pressure 85 mm[Hg] No Primary Care Physician [facility] 01-03-2025 15:22-0400 Systolic blood pressure 145 mm[Hg] No Primary Care Physician [facility] 08-06-2022 16:38-0500 Body height 165.1 cm No Primary Care Physician [facility] 08-06-2022 16:38-0500 Body mass index (BMI) [Ratio] 20.6 kg/m2 No Primary Care Physician [facility] 08-06-2022 16:38-0500 Diastolic blood pressure 81 mm[Hg] No Primary Care Physician [facility] 08-06-2022 16:38-0500 Systolic blood pressure 132 mm[Hg] No Primary Care Physician [facility] 08-06-2022 15:35-0500 Body weight 56.3 kg No Primary Care Physician [facility] Encounters Encounter Date Encounter Type Care Provider Facility Start: 01-23-2025 ambulatory No Primary Car e Physician Facility:[facility] Start: 01-03-2025 End: 01-03-2025 ambulatory No Primary Care Physician [facility] Work Phone: Start: 01-03-2025 End: 01-03-2025 Patient encounter procedure Edith Barron NP-C -Lab [facility] Start: 01-03-2025 End: 01-03-2025 ambulatory No Primary Care Physician [facility] Work Phone: Start: 01-03-2025 End: 01-03-2025 Patient encounter procedure Edith Barron NP-C -[facility] Work Phone: Start: 01-03-2025 End: 01-03-2025 Patient encounter status Edith Barron NP-C [facility] Start: 01-03-2025 End: 01-03-2025 ambulatory No Primary Care Physician Facility:[facility] Start: 12-01-2023 End: 12-01-2023 ambulatory Mayank Pack CASH APPLICATIONS ASSOCIATE.LOGGING CREW FOREMAN Work Phone: Gastroenterology Comment on above: Irritable bowel synd chad with both constipation and diarrhea [K58.2] (Primary Dx) Start: 12-01-2023 End: 12-01-2023 Telemedicine consultation with patient Mayank Pack CASH APPLICATIONS ASSOCIATE.LOGGING CREW FOREMAN Work Phone: Gastroenterology Start: 09-16-2023 Telephone encounter Mayank Pac k CASH APPLICATIONS ASSOCIATE.LOGGING CREW FOREMAN Work Phone: Gastroenterology Comment on above: Appointment Start: 09-02-2023 End: 09-02-2023 ambulatory MAYANK PACK Facility:[facility] Start: 01-26-2023 Patient encounter procedure [facility] Provider [facility] Department Start: 01-26-2023 End: 01-26-2023 ambulatory PRATHEEP PAWA Facility:[id number] Start: 09-22-2022 End: 09-22-2022 ambulatory No Primary Care Physician [facility] Work Phone: Start: 09-22-2022 End: 09-22-2022 Patient encounter procedure No Primary Care Physician [facility]-Outpatient Breast Imaging Start: 08-06-2022 End: 08-06-2022 ambulatory No Primary Care Physician [facility] Work Phone: Start: 08-06-2022 End: 08-06-2022 Patient encounter procedure No Primary Care Physician [facility]-Laboratory, Specimen Start: 08-06-2022 End: 08-06-2022 Patient encounter procedure No Primary Care Physician [facility] Start: 06-29-2021 End: 06-29-2021 Subsequent hospital visit by physician Cate Blackman Work Phone: [facility] Comment on above: SINUS PRESSURE,NASAL CONGESTION,COUGH Procedures Date Procedure Procedure Detail Performing Clinician Start: 01-03-2025 Follicle stimulating hormone measurement No Primary Care Physician Comment on above: FEMALE:Follicular: 1 .4 - 18.1 mIU/mLMidcycle: 3.4 - 33.4 mIU/mLLuteal: 1.5 - 9.1 mIU/mLPost Menopause: 23.0 - 116.3 mIU/mLMALE: 1.4 - 18.1 mIU/mL Start: 01-03-2025 Luteinizing hormone measurement No Primary Care Physician Comment on above: FEMALE:Follicular: 1 .9-12.5 mIU/mLMidcycle: 8.7-76.3 mIU/mLLuteal: 0.5-16.9 mIU/mLPost Menopause: 15.9-54.0 mIU/mLMALE:20-70 Years: 1.5-9.3 mIU/mL>70 Years: 3.1-34.6 mIU/mL Start: 09-22-2022 Screening mammography N o Primary Care Physician Start: 05-07-2015 Colonoscopy [facility]cf Provid er Plan of Treatment Date Care Activity Detail Author Start: 01-23-2025 MG Breast - bilateral Screening [facility] Start: 01-03-2025 Estradiol (E2) [Mass/volume] in Serum or Plasma [facility] Start: 01-03-2025 Follitropin and Lutropin panel [Units/volume] - Serum or Plasma [facility] Start: 04-03-2024 Influenza vaccination Influenza Vaccine (Season Ended) [facility] Start: 08-03-2023 Behavioral Health Screening Behavioral Health Screening [facility] Start: 08-03-2023 Depression Assessment Depression Assessment [facility] Start: 04-03-2023 Covid-19 Vaccine ( season) Covid-19 Vaccine ( season) [facility] Start: 04-03-2023 Influenza vaccination [facility] Start: 2022 COLOGUARD (FIT-DNA) COLOGUARD (FIT-DNA) [facility] Start: 2022 Colonoscopy COLONOSCOPY [facility] Start: 2022 COLORECTAL CANCER SCREENING COLORECTAL CANCER SCREENING [facility] Start: [address] COLONOGRAPHY [facility] Start: 2022 DIABETES SCREEN DIABETES SCREEN [facility] Start: 2022 Diabetes Screening Diabetes Screening [facility] Start: 2022 FECAL OCCULT BLOOD FECAL OCCULT BLOOD [facility] Start: 2022 Lipid panel Lipid Screening [facility] Start: 2022 LIPID SCREEN LIPID SCREEN [facility] Start: 2022 Screening for malignant neoplasm of colon [facility] Start: 2022 SIGMOIDOSCOPY SIGMOIDOSCOPY [facility] Start: 08-03-2022 DEPRESSION ASSESSMENT DEPRESSION ASSESSMENT [facility] Start: 11-15-2021 COVID-19 VACCINE (4 - Booster for Moderna series) COVID-19 VACCINE (4 - Booster for Moderna series) [facility] Start: 04-03-2021 Influenza vaccination INFLUENZA (#1) [facility] Start: 2017 Mammography MAMMOGRAM [facility] Start: 2017 Screening for malignant neoplasm of breast Mammogram Screening [facility] Start: 10-24-2007 HPV TESTING HPV TESTING [facility] Start: 10-24-2007 Screening for malignant neoplasm of cervix HPV Testing [facility] Start: 1998 PAP TESTING PAP TESTING [facility] Start: 1998 Screening for malignant neoplasm of cervix Pap Testing [facility] Start: 1996 Hepatitis B Vaccine (1 of 3 - 19+ 3-dose series) Hepatitis B Vaccine (1 of 3 - 19+ 3-dose series) [facility] Start: 1996 Urine microalbumin profile [facility] Start: 10-24-1995 HEPATITIS C SCREENING HEPATITIS C SCREENING [facility] Start: 10-24-1995 Hepatitis C screening Hepatitis C Screening [facility] Start: 10-24-1995 HIV SCREENING HIV SCREENING [facility] Start: 10-24-1995 HIV screening HIV Screening [facility] Start: 1989 Adult depression screening assessment DEPRESSION SCREENING [facility] Start: 1982 COVID-19 VACCINE (1) COVID-19 VACCINE (1) [facility] Start: 1977 HEPATITIS B (1 of 3 - 3-dose series) HEPATITIS B (1 of 3 - 3-dose series) [facility] Start: 1977 Hepatitis B Vaccine (1 of 3 - 3-dose series) Hepatitis B Vaccine (1 of 3 - 3-dose series) [facility] CBC W Auto Different ial panel - Blood [facility] Follicle stimulating hormone measurement [facility] Follitropin and Lutr opin panel [Units/volume] - Serum or Plasma [facility] Hemoglobin A1c/Hemoglobin.total in Blood [facility] Lutropin [Units/volu me] in Serum or Plasma [facility] MG Breast - bilatera l Screening [facility] MG Breast - bilatera l Screening [facility] T4 free measurement [facility] Thyroid stimulating hormone measurement [facility] Payers Date Payer Category Payer Self-pay 2023 Unknown [id number] 2023 Unknown [employer] PPO [id number] 2023-Present [phone] [address] [place] [address] PPO [id number] 2015 Private Health Insurance [facility] CHOICE PLUS [id number] 2015-Present [phone] [address] [place] [address] HMO [id number] Unknown [id number] Unknown [id number] Unknown [id number] Social History Date Type Detail Facility Start: 01-26-2023 End: 10-09-2023 Tobacco smoking status NHIS Never smoked tobacco [facility] Start: 06-07-2015 End: 01-26-2023 Alcohol intake Current non-drinker of alcohol (finding) [facility] Start: 1975 Sex Assigned At Not on file [facility] Start: 08-06-2022 Tobacco smoking stat us NHIS Unknown if ever smoked [facility] Start: 1975 Sex Assigned At Female [facility] Start: 01-26-2023 Tobacco use and exposure Smokeless tobacco non-user [facility] Start: 01-26-2023 End: 09-02-2023 History of Social function [facility] Start: 01-26-2023 End: 09-02-2023 Tobacco use panel [facility] National Score (1-100), lower number is lower risk 54 [facility] Clinical Notes 08-06-2022 to 01-03-2025 Note Date & Type Note Facility 01-03-2025 Evaluation note Diagnosis Onset Date Resolution Anxiety acute January 03, 2025 3:01pm Post-menopausal acute January 03, 2025 3:01pm Encounter for routine gynecological examination noneactive January 03, 2025 3:01pm [facility] Work Phone: [phone] 600-917404-30-2024 Instructions* Patient Instructions* Mayank Barrientos APRN.LOGGING CREW FOREMAN - 12/01/2023 7:16 AM EDT Thank you for seeing me in clinic today. As we discussed, my recommendations are as follows: Begin using 2 teaspoons of soluble fiber (e.g. Metamucil or Citrucel) in 12 oz of water every day. Stir until fiber has dissolved. If fiber is well-tolerated but does not completely regulate bowel movements after 1 week, add another teaspoon of fiber for a total of 3 teaspoons per day. Fiber works best if you are hydrated. Be sure to drink at least 64 oz of water every day. Continue MiraLAX 1 capful daily Increase water intake If you have any questions about the above treatment plan, please do not hesitate to call the officeor send me a [facility] message. [facility] History and physical note * Mayank Barrientos APRN.CNP - 12/01/2023 7:00 AM EDT DISTANCE HEALTH VISIT This Team Access Model visit is a virtual encounter. It required patient- provider interaction for the medical decision making as documented below. REASON FOR VISIT: follow up IBS HPI: Josselin Voss is a 48 year old female who presents for follow up IBS. She admits her symptoms have improved aprox 60%. She is taking MiraLAX 1 capful every other day. She has a BM every other day. She endorses type 4-5 stool. She feels that her menopause symptoms are exacerbating her IBS. She is working with her window maker on different supplements for menopause. Patient denies heartburn, regurgitation, dysphagia, early satiety, nausea, vomiting, abdominal pain, changes in appetite, change in bowel habits, unintentional weight loss, melena, hematochezia or hematemesis. Past Clinical Work-Up: [facility] MAYANK BARRIENTOS APRN. CNP 09/02/2023 ASSESSMENT/PLAN: Ms. Voss is a 47 year old female with a history of IBS presents for IBS. She endorses a longstanding history of IBS-M. She was previously seeing Dr. Washington. She was doing well on bentyl and a probiotic for many years. She had a colonoscopy on 05/07/2015 that was unrevealing. She states that she has been under a lot of stress and her symptoms have flared. She endorses constipation accompanied by abdominal bloating and not feeling completely evacuated. She can go up to 4-7 days without a BM. Shehas done MiraLAX as needed without improvement. I recommend a colon clean out followed by MiraALX 1capful daily. I discussed titrating this medication as needed to have a bowel movement daily to every other day.I had a long discussion with the patient regarding Irritable Bowel syndrome, including the general benign nature of disease course, the waxing and waning pattern of symptoms, and the correlation of symptoms with stress, depression, or anxiety. The patient was also counseled on the importance of lifestyle modifications to decrease severity of IBS symptoms such as: stress reduction, increased exercise, relaxation techniques, meditation, and yoga among others. 1. Irritable bowel syndrome with constipation - ICD9: 564.1, ICD10: K58.1 - colon clean out - MiraLAX 1 capful daily adjusting s needed COLONOSCOPY 05/07/2015 Impression: - The entire examined colon is normal. Biopsied. PATH FINAL DIAGNOSIS Colon, random biopsies - Colonic mucosa with no significant diagnostic alteration. COMMENT The colonic mucosa shows overall preservation of the crypt architecture with a normal physiologic component of inflammatory cells within the lamina propria including plasma cells. There is no evidence of acute colitis. Lymphocytic or collagenous colitis is not identified. ALLERGIES Allergen Reactions Amoxil [Amoxicillin] Hives PAST MEDICAL HISTORY Diagnosis Date IBS (irritable bowel syndrome) PAST SURGICAL HISTORY Procedure Laterality Date , CLASSIC, IN-HOSP CARE 2001 COLONOSCOPY FLX DX W/COLLJ SPEC WHEN PFRMD 05/07/2015 Colonoscopy PAST SURGICAL HISTORY OF 2009 cervical ablation PAST SURGICAL HISTORY OF 1994 wisdom teeth extraction SCREENING COLONSCOPY NOT HIGH RISK 2010 FAMILY HISTORY Problem Relation Age of Onset Hypertension Maternal Grandmother Heart Maternal Grandfather Stroke Paternal Grandmother Diabetes Paternal Grandfather Social History Tobacco Use Smoking status: Never Smokeless tobacco: Never Vaping Use Vaping Use: Never used Substance Use Topics Alcohol use: No Drug use: No Current Outpatient Medications Medication Sig dicyclomine (BENTYL) 10 mg capsule Take 1 capsule by mouth before meals and at bedtime. (Patient not taking: Reported on 01/26/2023) No current facility-administered medications for this visit. I have confirmed and edited, if necessary, the PFSH obtained by others. REVIEW OF SYSTEMS: GENERAL: No weight loss, malaise or fevers RESPIRATORY: Negative for cough, hemoptysis, wheezing, dyspnea or shortness of breath CARDIOVASCULAR: Negative for chest pain, leg swelling, or palpitations GI: See HPI PHYSICAL EXAM: General - Normal, healthy, cooperative, in no acute distress Able to interact verbally by video conference Psych - ORIENTATION: normal to time place, person and situation Mood/Affect: AFFECT AND MOOD: Normal Head/Neuro - Normal size and shape Facial appearance normal Pulmonary - respiratory effort normal Cardiovascular - patient describes extremities normal, warm, no cyanosis,no clubbing, and no edema Abdominal - Not performed Skin - abnormal lesions not visualized Motor - patient seen sitting with Normal appearing strength and coordination ASSESSMENT/PLAN: Ms. Voss is a 48 year old female with a history of IBS presents for IBS follow up as copied and updated from my previous office visit note and reflects medical decision making today. She admits hersymptoms have improved aprox 60%. She is taking MiraLAX 1 capful every other day. She has a BM every other day. She endorses type 4-5 stool. She feels that her menopause symptoms are exacerbating herIBS. I recommend continuing MiraLAX. I discussed adding metamucil daily. She denies red flag symptoms. The patient is agreeable with the above plan and encouraged to reach out with questions and concerns. ASSESSMENT/PLAN: 1. Irritable bowel syndrome with both constipation and diarrhea [K58.2] - ICD9: 564.1, ICD10: K58.2 Continue MiraLAX 1 capful daily Increase water intake 3. Metamucil daily 4. Follow up in 3 months I spent more than 30 minutes [id number] with the patient and over half the time was devoted to counseling and/or coordination of care. This note was dictated using ThromboVision speech recognition software and may contain some errors that were a result of the program not accurately transcribing what was dictated. I have communicated my name and active licensure. The patient's identity and physical location wereverified at the time of this visit. Either the patient or their legal medical representative has been informed of the risks and benefits of -- and alternatives to -- treatment through a remote evaluation andconsents to proceed with the evaluation remotely. Mayank Barrientos APRN.CNP [facility]04-30-2024 History and physical note* Mayank Barrientos APRN.CNP - 12/01/2023 7:00 AM EDT DISTANCE HEALTH VISIT This Team Access Model visit is a virtual encounter. It required patient- provider interaction for the medical decision making as documented below. REASON FOR VISIT: follow up IBS HPI: Josselin Voss is a 48 year old female who presents for follow up IBS. She admits her symptoms have improved aprox 60%. She is taking MiraLAX 1 capful every other day. She has a BM every other day. She endorses type 4-5 stool. She feels that her menopause symptoms are exacerbating her IBS. She is working with her window maker on different supplements for menopause. Patient denies heartburn, regurgitation, dysphagia, early satiety, nausea, vomiting, abdominal pain, changes in appetite, change in bowel habits, unintentional weight loss, melena, hematochezia or hematemesis. Past Clinical Work-Up: [employer] 09/02/2023 ASSESSMENT/PLAN: Ms. Voss is a 47 year old female with a history of IBS presents for IBS. She endorses a longstanding history of IBS-M. She was previously seeing Dr. Washington. She was doing well on bentyl and a probiotic for many years. She had a colonoscopy on 05/07/2015 that was unrevealing. She states that she has been under a lot of stress and her symptoms have flared. She endorses constipation accompanied by abdominal bloating and not feeling completely evacuated. She can go up to 4-7 days without a BM. Shehas done MiraLAX as needed without improvement. I recommend a colon clean out followed by MiraALX 1capful daily. I discussed titrating this medication as needed to have a bowel movement daily to every other day.I had a long discussion with the patient regarding Irritable Bowel syndrome, including the general benign nature of disease course, the waxing and waning pattern of symptoms, and the correlation of symptoms with stress, depression, or anxiety. The patient was also counseled on the importance of lifestyle modifications to decrease severity of IBS symptoms such as: stress reduction, increased exercise, relaxation techniques, meditation, and yoga among others. 1. Irritable bowel syndrome with constipation - ICD9: 564.1, ICD10: K58.1 - colon clean out - MiraLAX 1 capful daily adjusting s needed COLONOSCOPY 05/07/2015 Impression: - The entire examined colon is normal. Biopsied. PATH FINAL DIAGNOSIS Colon, random biopsies - Colonic mucosa with no significant diagnostic alteration. COMMENT The colonic mucosa shows overall preservation of the crypt architecture with a normal physiologic component of inflammatory cells within the lamina propria including plasma cells. There is no evidence of acute colitis. Lymphocytic or collagenous colitis is not identified. ALLERGIES Allergen Reactions Amoxil [Amoxicillin] Hives PAST MEDICAL HISTORY Diagnosis Date IBS (irritable bowel syndrome) PAST SURGICAL HISTORY Procedure Laterality Date , CLASSIC, IN-HOSP CARE 2001 COLONOSCOPY FLX DX W/COLLJ SPEC WHEN PFRMD 05/07/2015 Colonoscopy PAST SURGICAL HISTORY OF 2009 cervical ablation PAST SURGICAL HISTORY OF 1994 wisdom teeth extraction SCREENING COLONSCOPY NOT HIGH RISK 2010 FAMILY HISTORY Problem Relation Age of Onset Hypertension Maternal Grandmother Heart Maternal Grandfather Stroke Paternal Grandmother Diabetes Paternal Grandfather Social History Tobacco Use Smoking status: Never Smokeless tobacco: Never Vaping Use Vaping Use: Never used Substance Use Topics Alcohol use: No Drug use: No Current Outpatient Medications Medication Sig dicyclomine (BENTYL) 10 mg capsule Take 1 capsule by mouth before meals and at bedtime. (Patient not taking: Reported on 01/26/2023) No current facility-administered medications for this visit. I have confirmed and edited, if necessary, the PFSH obtained by others. REVIEW OF SYSTEMS: GENERAL: No weight loss, malaise or fevers RESPIRATORY: Negative for cough, hemoptysis, wheezing, dyspnea or shortness of breath CARDIOVASCULAR: Negative for chest pain, leg swelling, or palpitations GI: See HPI PHYSICAL EXAM: General - Normal, healthy, cooperative, in no acute distress Able to interact verbally by video conference Psych - ORIENTATION: normal to time place, person and situation Mood/Affect: AFFECT AND MOOD: Normal Head/Neuro - Normal size and shape Facial appearance normal Pulmonary - respiratory effort normal Cardiovascular - patient describes extremities normal, warm, no cyanosis,no clubbing, and no edema Abdominal - Not performed Skin - abnormal lesions not visualized Motor - patient seen sitting with Normal appearing strength and coordination ASSESSMENT/PLAN: Ms. Voss is a 48 year old female with a history of IBS presents for IBS follow up as copied and updated from my previous office visit note and reflects medical decision making today. She admits hersymptoms have improved aprox 60%. She is taking MiraLAX 1 capful every other day. She has a BM every other day. She endorses type 4-5 stool. She feels that her menopause symptoms are exacerbating herIBS. I recommend continuing MiraLAX. I discussed adding metamucil daily. She denies red flag symptoms. The patient is agreeable with the above plan and encouraged to reach out with questions and concerns. ASSESSMENT/PLAN: 1. Irritable bowel syndrome with both constipation and diarrhea [K58.2] - ICD9: 564.1, ICD10: K58.2 Continue MiraLAX 1 capful daily Increase water intake 3. Metamucil daily 4. Follow up in 3 months I spent more than 30 minutes [id number] with the patient and over half the time was devoted to counseling and/or coordination of care. This note was dictated using ThromboVision speech recognition software and may contain some errors that were a result of the program not accurately transcribing what was dictated. I have communicated my name and active licensure. The patient's identity and physical location wereverified at the time of this visit. Either the patient or their legal medical representative has been informed of the risks and benefits of -- and alternatives to -- treatment through a remote evaluation andconsents to proceed with the evaluation remotely. Mayank Barrientos APRN.CNP [facility] Miscellaneous Notes* Telephone Encounter - Melissa Junior - 09/16/2023 12:58 PM EST Images from the original note were not included. Mayank Barrientos APRN.CNP [address] [employer] Please schedule follow up in 3 month. Pt requesting virtuals 1st attempt LVM to schedule appointment for vv Melissa Junior September 16, 2023 documented in this encounterMer[facility]06[facility]23 NoteHNO ID: [id number] Author: Jerry See MD Service: ? Author Type: Physician Type: Progress Notes Filed: 01/26/2023 11:34 AM Note Text: Josselin Voss is a 47 year old FEMALE who presents with Cough (STARTED 7-10 DAYS AGO /), Sore Throat, Stuffy nose, and Congestion Note: At the time of patient visit the [facility] system of documentation was down Initial documentation was done on the downtime papers Now being transferred to the [facility] system Patient presented with stuffy nose cough congestion sore throat for the last 7 to 10 days Started having some chest discomfort and chest congestion for few days No fever chills, no shortness of breath No vomiting or diarrhea PAST MEDICAL HISTORY Diagnosis Date IBS (irritable bowel syndrome) ACTIVE PROBLEM LIST Irritable Bowel Syndrome With Diarrhea Current Outpatient Medications Medication Sig Dispense Refill dicyclomine (BENTYL) 10 mg capsule Take 1 capsule by mouth before meals and at bedtime. (Patient not taking: Reported on 01/26/2023) 120 capsule 11 No current facility-administered medications for this visit. Social History Tobacco Use Smoking status: Never Smokeless tobacco: Never Vaping Use Vaping Use: Never used Substance Use Topics Alcohol use: No Drug use: No Alcohol Use: No Tobacco Use: Never FAMILY HISTORY Problem Relation Age of Onset Hypertension Maternal Grandmother Heart Maternal Grandfather Stroke Paternal Grandmother Diabetes Paternal Grandfather Review of Systems HENT: Positive for congestion and sinus pain. Respiratory: Positive for cough. All other systems reviewed and are negative. BP 118/62 Pulse 100 Temp (Src) 98.2 (Temporal) Resp 19 Wt 133 lb (60.3kg) SpO2 97% Physical Exam Vitals reviewed. Constitutional: General: She is not in acute distress. Appearance: Normal appearance. She is not ill-appearing or toxic-appearing. HENT: Nose: Congestion present. Comments: Mild paranasal sinuses tenderness Mouth/Throat: Mouth: Mucous membranes are moist. Pharynx: Oropharynx is clear. Comments: Mild postnasal drip Cardiovascular: Rate and Rhythm: Normal rate. Heart sounds: Normal heart sounds. Pulmonary: Effort: Pulmonary effort is normal. Breath sounds: Normal breath sounds. Musculoskeletal: Cervical back: Normal range of motion and neck supple. Neurological: Mental Status: She is alert. ASSESSMENT/PLAN: 1. Acute non-recurrent maxillary sinusitis - ICD9: 461.0, ICD10: J01.00 Paper prescription of Z-Jules as directed 1 pack with no refill was given patient to take to pharmacy Fluids, f/u PCP for evaluation and care Saline nasal spray, [id number] medication for symptom relief as needed Explained details Paper discharge instructions were given to the patient Patient understand and agreed Jerry See [facility]06-26-2023 NoteHNO ID: [id number] Author: Mishel Gregory LPN Service: ? Author Type: LICENSED NURSE Type: Progress Notes Filed: 01/26/2023 11:34 AM Note Text: Attention: During the [employer] system downtime some charting was done on paper. See paper medical record or scanned documents tab for patient documentation. Mishel Gregory [facility]01-04-2023 NotePap Smear Specimen AdequacyJan2022 4:57pmComment.Satisfactory for evaluation. Endocervical and/or squamous metaplasticcells (endocervical component)are present.[facility] INTER[facility]ACED A#[id number] HospitalComment on above: Satisfactory for evaluation. Endocervical and/or squamous metaplasticcells (endocervical component)are present.08-06-2022 NotePap Smear Specimen Adequacy August 06, 2022 4:57pmComment.Satisfactory for evaluation. Endocervical and/or squamous metaplasticcells (endocervical component)are present.[facility] INTER[facility]ACED A#[id number] HospitalComment on above:Satisfactory for evaluation. Endocervical and/or squamous metaplasticcells (endocervical component)are present.Evaluation note* Diagnosis Onset Date Resolution Status Irregular menses acute Women's annual routine gynecological examination [facility] Work Phone: Evaluation note* Diagnosis Irritable bowel syndrome with both constipation and diarrhea [K58.2]- Primary documented [facility] encounter [facility]* Diagnosis Onset Date Resolution Status Admit Date Encounter for routine gynecological examination noneactive January 032024 3:01pm [facility] Work Phone: Reason for referral (narrative)No reason for referral information availableBlUSC Kenneth [facility] Work Phone: Summary Purpose Family History No Family History Records Found Relationship Condition Age at Onset Recorded Date/T padmini grandmother Malignant neoplasm of ovary Unknown grandfather Diabetes mellitus Unknown mother Malignant neoplasm of lung Unknown Advance Directives No Advanced Directives Records FoundNo Advanced Directives Records FoundNo Advanced Directives Records FoundNo Advanced Directives Records Found Chief Complaint and Reason for Visit Chief Complaint Admit Date Annual (LAW REPORTER) January 03, 2025 3:01p m Reason for Visit Admit Date Encounter for routine gynecological exam ination January 03, 2025 3:01pm Chief Complaint amenorrhea Reason for Visit Irregular menses Women's annual routine gynecological examination Chief Complaint amenorrhea SCREENING Reason for Visit Irregular menses Women's annual routine gynecological examination Reason for Visit Admit Date Anxiety January 03, 2025 3:01p m Post-menopausal January 03, 2025 3:01p m Encounter for routine gynecological exam ination January 03, 2025 3:01pm Additional Source Comments INFORMATION SOURCE (unrecogn ized section and content) DATE CREATED AUTHOR 07/01/2021 [facility] [place] DATE CREATED AUTHOR AUTHOR'S ORGANIZ ATION 01/26/2023 [facility] DATE CREATED AUTHOR AUTHOR'S ORGANIZ ATION 12/02/2023 [facility] DATE CREATED AUTHOR AUTHOR'S ORGANIZ ATION 01/21/2025 [facility] Source Comments (unrecognize d section and content) In the event this informatio n is protected by the Federal Confidentiality of Alcohol and Drug Abuse Patient Records regulations: The Federal rules restrict any use of the information to criminally investigate or prosecute any alcohol or drug abuse patient.[facility] HospitalIn the event this information is protected by the Federal Confidentiality of Alcohol and Drug Abuse Patient Records regulations: The Federal rules restrict any use of the information to criminally investigate or prosecute any alcohol or drug abuse patient.[facility] HospitalIn the event this information is protected by the Federal Confidentiality of Alcohol and Drug Abuse Patient Records regulations: The Federal rules restrict any use of the information to criminally investigate or prosecute any alcohol or drug abuse patient.[facility] HospitalIn the event this information is protected by the Federal Confidentiality of Alcohol and Drug Abuse Patient Records regulations: The Federal rules restrict any use of the information to criminally investigate or prosecute any alcohol or drug abuse patient.[facility] Care Teams (unrecognized sec tion and content) Team Status: Active Member Role Status Dates No Primary Care Physician Primary Care Provider Active Team Status: Inactive Member Role Status Dates No Primary Care Physician Primary Care Provider, Refer ring Provider Active Monica Johnson CNM Attending Provider Active Team Status: Inactive Member Role Status Dates No Primary Care Physician Primary Care Provider Active Monica Johnson CNM Attending Provider Active Team Status: Inactive Member Role Status Dates No Primary Care Physician Primary Care Provider Active Monica Johnson CNM Attending Provider, Referring Pr ovider Active Team Status: Inactive Member Role Status Dates No Primary Care Physician Primary Care Provider Active Start: January 03, 2025 End: January 03, 2025 No Primary Care Physician Referring Provider Active Start: January 03, 2025 End: January 03, 2025 ISH Maddox Attending Provider Active Start: January 03, 2025 End: January 03, 2025 Team Status: Inactive Member Role Status Dates No Primary Care Physician Primary Care Provider Active Start: January 03, 2025 End: January 03, 2025 ISH Maddox Attending Provider Active Start: January 03, 2025 End: January 03, 2025 ISH Maddox Referring Provider Active Start: January 03, 2025 End: January 03, 2025 Team Status: Active Member Role Status Dates No Primary Care Physician Primary Care Provider Active Start: January 03, 2025 ISH Maddox Attending Provider Active Start: January 03, 2025 ISH Maddox Referring Provider Active Start: January 03, 2025 Goals (unrecognized section and content) Goals may be documented in a n alternate sectionGoals may be documented in an alternate sectionGoals may be documented in an alternate sectionGoals may be documented in an alternate section Reason for Visit (unrecogniz ed section and content) Reason Comments Appointment Reason Comments Irritable Bowel Syndrome FOR RECORDS PERTAINING TO PATIENTS WHO ARE OR HAVE BEEN ENROLLED IN A CHEMICAL DEPENDENCY/SUBSTANCEABUSE PROGRAM, SOME INFORMATION MAY BE OMITTED. This clinical summary was aggregated from multiple sources. Caution should be exercised in using it in the provision of clinical care. This summary normalizes information from multiple sources, and as a consequence, information in this document may materially change the coding, format and clinical context of patient data. In addition, data may be omitted in some cases. CLINICAL DECISIONS SHOULD BE BASED ON THE PRIMARY CLINICAL RECORDS. [employer] [facility]. provides no warranty or guarantee of the accuracy or completeness of information in this document.
== END | disposition home or self-care (01) ==
LOC: OPBI 07:44
PROVIDERS: Referring Provider Nurse Practitioner Family; Visit Provider Nurse Practitioner Family
DX: Z12.31 Encounter for screening mammogram for malignant neoplasm of breast (principal)
CPT/HCPCS: 77063; 77067

== ENCOUNTER → 2025-05-23 | Outpatient (CLI) | payer BC, SELFPAY ==
--- NOTE | 2025-05-23 15:26 | US_ITS ---
PROCEDURE: PELVIC W/ TRANSVAGINAL 05/23/2025 REASON FOR EXAM: PMB TECHNIQUE: Procedure Code: [id number] Modality: US Procedure: PELVIC W/ TRANSVAGINAL FINDINGS: Uterus measures 7.9 x 5.2 x 3.5 cm. Heterogenous appearance of the uterus. No uterine fibroids are noted. Anteverted uterus. Endometrial thickness is 2 mm. Cervix is within normal limits. Bilateral ovaries are not well visualized. No free fluid is noted. US/Pelvic w/ Transvaginal IMPRESSION: Heterogenous appearance of the uterus. Bilateral ovaries not well seen. Other [place] unremarkable exam. Reading Location: [id number]
== END | disposition home or self-care (01) ==
PROVIDERS: Referring Provider Nurse Practitioner Family; Visit Provider Nurse Practitioner Family
DX: N95.0 Postmenopausal bleeding (principal)
CPT/HCPCS: 76830; 76856